=== PATIENT | male | born 1945 | race Caucasian/White ===

== ENCOUNTER 2020-05-06 06:52 | Day surgery (SDC) | payer OTHER ==
[~2020-05-06] VITALS: Ht 188 cm; Wt 101.0 kg
[~2020-05-06 06:52] MED LIST: ASPI81CH PO; ATOR20 PO; CARV6.25; CARV6.25 PO; CHLO25B PO; ENTRESTO 24 MG1 EAC2 PO; FINA5 PO; METF500 PO; SPIR25 PO
[2020-05-06] MEDS ORDERED: Nitroglycerin1 EAC3 TOP (07:28)
--- NOTE | 2020-05-06 11:44 | NUR ---
DISCHARGE GONE OVER WITH PT, PT VERBALIZES UNDERSTANDING. CLOTH DOT PLACED OVER RIGHT RADIAL SITE. SALINE LOCK OUT WITH CATHETER INTACT. PT TO PRIVATE VEHICLE PER W/C WITH 1 STAFF.
== END 2020-05-06 11:45 | disposition home or self-care (01) ==
LOC: MHTC 06:52
DX: I25.10 Atherosclerotic heart disease of native coronary artery without angina pectoris (principal); R94.39 Abnormal result of other cardiovascular function study; R06.02 Shortness of breath; I42.0 Dilated cardiomyopathy; Z88.2 Allergy status to sulfonamides; Z88.1 Allergy status to other antibiotic agents
CPT/HCPCS: 76937; 85347; 93458; 99152; 99153; C1769; C1894; J1644; J2250; J3010; J7030; J7050; Q9967

== ENCOUNTER 2020-07-02 08:40 | Day surgery (SDC) | payer OTHER ==
[~2020-07-02] VITALS: Ht 188 cm; Wt 99.2 kg
[~2020-07-02 08:40] MED LIST changes: -ASPI81CH PO; +Aspirin EC81 MG PO; +Nitroglycerin1 EAC3 TOP
--- NOTE | 2020-07-02 13:50 | NUR ---
PT ARRIVED IN THE UNIT FROM [facility] FOR EXTENDED RECOVERY. PT IS ALERT AND ORIENTED AT BASELINE. VITALS HRR SINUS/SINUS DAIN 55-65'S, BP SYSTOLIC 150'S, SATS ABOVE 95% ON RA, AFEBRILE. PT HAS RIGHT RADIAL ACCESS SITE TR BAND WITH 12CC OF AIR. PT HAD 4 STENTS PLACED DURING THE PROCEDURE PT TOLERATED WELL PER REPORT. PT DENIES ANY PAIN AT THIS TIME, PT USES URINAL FOR URINATION, STANDS AT BEDSIDE TO USE URINAL. PT CURRENTLY IN BED EATING LUNCH. CALL LIGHTS IN REACH WILL MONITOR
--- NOTE | 2020-07-03 06:55 | NUR ---
SHIFT SUMMARY PT ALERT AND ORIENTED. PT SLEPT T/O SHIFT. HR STABLE. BP STABLE. PT REPORTS NO CP OR PRESSURE. OXYGEN SATURATION MAINTAINED ABOVE 92% ON RA. WILL CONTINUE TO MONITOR UNTIL REPORT GIVEN TO MAHAMED HANSON.
[2020-07-03] MEDS ORDERED: TICA90TA PO (10:03)
--- NOTE | 2020-07-03 11:32 | NUR ---
PT DISCHARGED TO HOME TODAY WITH DISCHARGED ORDERS, RIGHT RADIAL ACCESS SITE FULLY RECOVERED CLEAR DRESSING AND SITE CDI, VITALS HAS BEEN STABLE. PT TO FOLLOW UP WITH DR FELIZ IN 4 WEEKS APPT MADE AND SET UP, PT TO START ON [place] MEDICATION PT WAS SENT CARD FOR FREE 30DAYS SUPPLY AND FREE SAMPLES. DISCHARGED MEDICAITON AND INSTRUCTION DISCLOSED WITH THE PT. PT RECEIVED A SHOWER PRIOR TO DISCHARGED. ALL BELONGINGS SENT WITH PT, [facility]SP[facility]. PT ACCOMPANIED IN THE LOBBY VIA WHEELCHAIR.
== END 2020-07-03 10:43 | disposition home or self-care (01) ==
LOC: MHTC 08:40 → PCU 12:38 → ENPENDDIS 07-03 09:31 → MHTC 07-03 10:43
DX: I25.119 Atherosclerotic heart disease of native coronary artery with unspecified angina pectoris (principal); I11.0 Hypertensive heart disease with heart failure; I50.20 Unspecified systolic (congestive) heart failure; E11.9 Type 2 diabetes mellitus without complications; E78.5 Hyperlipidemia, unspecified; I25.5 Ischemic cardiomyopathy; I08.3 Combined rheumatic disorders of mitral, aortic and tricuspid valves; Z88.2 Allergy status to sulfonamides; Z88.1 Allergy status to other antibiotic agents; Z79.02 Long term (current) use of antithrombotics/antiplatelets; Z79.82 Long term (current) use of aspirin; Z79.899 Other long term (current) drug therapy; Z95.5 Presence of coronary angioplasty implant and graft; Z79.84 Long term (current) use of oral hypoglycemic drugs
CPT/HCPCS: 76937; 85347; 92978; 93005; 93010; 93454; 99152; 99153; A9270; A9270-GY; C1725; C1753; C1769; C1874; C1887; C1894; C9600; C9601; J1644; J1650; J2250; J3010; J7030; J7050; Q9967

== ENCOUNTER 2020-08-02 08:47 | Day surgery (SDC) | payer OTHER ==
[~2020-08-02] VITALS: Ht 188 cm; Wt 97.0 kg
[~2020-08-02 08:47] MED LIST changes: +TICA90TA PO
--- NOTE | 2020-08-02 13:10 | NUR ---
2 cc air removed from TR band no bleeding at site. Remainder of air removed over 15 minutes. No bleeding at site.
--- NOTE | 2020-08-02 14:10 | NUR ---
DR. FELIZ HERE TO DISCUSS PROCEDURE. HEMATOMA ON RIGHT ARM ASSESSED. WHEN PRESSURE APPLIED THE SITE SOFTENS. COBAN APPLIED.
--- NOTE | 2020-08-02 14:16 | NUR ---
TR BAND REMOVED. NO BLEEDING AT SITE. CLOTH DOT AND IMMOBILIZER APPLIED. DISCHARGE INSTRUCTIONS GIVEN WITH VERBAL AND WRITTEN UNDERSTANDING. DRESSED FOR DISCHARGE.
--- NOTE | 2020-08-02 14:20 | NUR ---
IV REMOVED INTACT. 2X2, COBAN AND MANUAL PRESSURE APPLIED.
--- NOTE | 2020-08-02 15:01 | NUR ---
DISCHARGED HOME VIA WHEELCHAIR. FRIEND DRIVING.
== END 2020-08-02 15:00 | disposition home or self-care (01) ==
LOC: MHTC 08:47
PROC: B211YZZ Fluoroscopy of Multiple Coronary Arteries using Other Contrast (ICD-10-PCS; principal; 2020-08-02)
PROC: 4A023N7 Measurement of Cardiac Sampling and Pressure, Left Heart, Percutaneous Approach (ICD-10-PCS; principal; 2020-08-02)
DX: I25.118 Atherosclerotic heart disease of native coronary artery with other forms of angina pectoris (principal); I11.0 Hypertensive heart disease with heart failure; E11.9 Type 2 diabetes mellitus without complications; Z88.2 Allergy status to sulfonamides; Z88.1 Allergy status to other antibiotic agents; E78.00 Pure hypercholesterolemia, unspecified; E78.5 Hyperlipidemia, unspecified; Z79.82 Long term (current) use of aspirin; E53.8 Deficiency of other specified B group vitamins; I42.9 Cardiomyopathy, unspecified; I50.20 Unspecified systolic (congestive) heart failure; Z79.84 Long term (current) use of oral hypoglycemic drugs; Z79.899 Other long term (current) drug therapy; I44.0 Atrioventricular block, first degree; I08.1 Rheumatic disorders of both mitral and tricuspid valves
CPT/HCPCS: 76937; 85347; 93454; 99152; 99153; C1725; C1769; C1874; C1887; C1894; C9600; J1644; J2250; J3010; J7030; J7050; Q9967

== ENCOUNTER 2020-10-11 08:34 | Emergency (ER) | payer OTHER ==
[~2020-10-11] VITALS: Ht 188 cm; Wt 97.5 kg
[2020-10-11 09:36] LABS: Source, Urine Clean Catch
[2020-10-11 09:54] LABS: Blood, Urine 5+ (Neg); Glucose Qualitative, Urine Neg (Neg); Ketones, Urine 1+ (Neg); Leukocyte Esterase, Urine 3+ (Neg); Nitrite, Urine Pos (Neg); Protein, Urine 2+ (Neg); Urobilinogen, Urine 1+ (Normal)
[2020-10-11 10:20] LABS: Bilirubin, Urine 1+ (Neg)
[2020-10-11 10:21] LABS: Appearance, Urine Turbid (Clear); Color, Urine Amber (P-Yellow)
[2020-10-11 10:25] LABS: Red Blood Cells, Urine TNTC /hpf (0-2); Squamous Epithelial Cells Few /hpf (Few)
[2020-10-11 10:30] LABS: White Blood Cells, Urine 25-50 /hpf (0-5)
[2020-10-11 10:31] LABS: Bacteria Few /hpf
[2020-10-11 10:35] LABS: Calcium, Ionized (POC) 1.18 mmol/L (1.10-1.46); Chloride (POC) 102 mmol/L (98-108); Creatinine (POC) 1.2 mg/dL (0.8-1.3); Glucose (ISTAT POC) 138 mg/dL (70-99); Hemoglobin (POC) 14.3 g/dL (13.5-17.5); Potassium (POC) 3.7 mmol/L (3.5-5.5); Sodium (POC) 140 mmol/L (135-148); Total CO2 (POC) 28 mmol/L (21-32)
[2020-10-11] MEDS ORDERED: Macrobid 100 M100 MG PO (13:14)
== END 2020-10-11 13:33 | disposition home or self-care (01) ==
LOC: ER 08:34
PROVIDERS: Emergency Medicine
DX: R31.9 Hematuria, unspecified (principal); Z79.84 Long term (current) use of oral hypoglycemic drugs; Z79.899 Other long term (current) drug therapy
CPT/HCPCS: 71045; 74177; 80047; 81001; 84484; 85014; 87077; 87086; 87186; 93005; 93010; 99284-25; J7120; Q9967

== ENCOUNTER 2021-06-27 13:11 | Emergency (ER) | payer OTHER ==
[~2021-06-27] VITALS: Ht 188 cm; Wt 97.5 kg
[~2021-06-27 13:11] MED LIST changes: +Macrobid 100 M100 MG PO
[2021-06-27 14:38] LABS: Influenza A, PCR NEGATIVE (NEGATIVE); Influenza B, PCR NEGATIVE (NEGATIVE); Resp Syncytial Virus, PCR NEGATIVE (NEGATIVE)
[2021-06-27 14:48] LABS: SARS-Cov-2 (COVID-19) PCR, MMC POSITIVE (NEGATIVE)
== END 2021-06-27 14:57 | disposition home or self-care (01) ==
LOC: ER 13:11
PROVIDERS: Physician Assistant
DX: U07.1 COVID-19 (principal); E11.9 Type 2 diabetes mellitus without complications; Z88.2 Allergy status to sulfonamides; Z88.1 Allergy status to other antibiotic agents; Z79.899 Other long term (current) drug therapy; Z79.82 Long term (current) use of aspirin
CPT/HCPCS: 0241U; 99284

== ENCOUNTER 2021-07-02 13:32 | Emergency (ER) | payer OTHER ==
[~2021-07-02] VITALS: Ht 188 cm; Wt 97.5 kg
[2021-07-02 13:51] LABS: BASOPHILS PERCENT AUTO 0 % (0-2); EOSINOPHILS ABSOLUTE AUTO 0.01 K/mm3 (0.00-0.68); EOSINOPHILS PERCENT AUTO 0 % (0-6); Hematocrit 37.8 % (37.0-53.0); IMMATURE GRAN ABSOLUTE AUTO 0.02 K/mm3 (0.00-0.10); IMMATURE GRAN PERCENT AUTO 0 % (0-1); LYMPHOCYTES ABSOLUTE AUTO 0.34 K/mm3 (0.84-5.20); LYMPHOCYTES PERCENT AUTO 6 % (21-46); MONOCYTES ABSOLUTE AUTO 0.35 K/mm3 (0.16-1.47); MONOCYTES PERCENT AUTO 6 % (4-13); Mean Corpuscular HGB 24.1 pg (26.0-34.0); Mean Corpuscular HGB Conc 31.7 g/dL (31.5-36.5); Mean Corpuscular Volume 76 fL (80-100); Mean Platelet Volume 9.8 fL (9.1-12.4); NEUTROPHILS ABSOLUTE AUTO 5.25 K/mm3 (1.96-9.15); NEUTROPHILS PERCENT AUTO 88 % (41-73); Platelet Count 268 K/mm3 (150-400); RDW Coefficient Variation 14.5 % (11.7-14.2); RDW Standard Deviation 39.1 fL (35.1-46.3); Red Blood Cell Count 4.98 M/mm3 (4.30-5.90); White Blood Cell Count 5.97 K/mm3 (4.00-11.30)
[2021-07-02 14:26] LABS: Albumin, Blood 2.6 g/dL (3.4-5.0); Albumin/Globulin Ratio 0.6 (0.8-1.8); Bilirubin, Total 0.7 mg/dL (0.1-1.0); Bun/Creatinine Ratio 22.1 (12.0-20.0); Calcium, Blood 8.8 mg/dL (8.5-10.1); Creatinine, Blood 1.45 mg/dL (0.60-1.20); Globulin, Blood 4.6 g/dL (2.2-4.0); Potassium, Blood 3.3 mmol/L (3.5-5.5); Total Protein, Blood 7.2 g/dL (6.4-8.2)
== END 2021-07-03 05:35 | disposition home or self-care (01) ==
LOC: ER 13:32
PROVIDERS: Emergency Medicine
DX: U07.1 COVID-19 (principal); J12.89 Other viral pneumonia; I11.0 Hypertensive heart disease with heart failure; I50.22 Chronic systolic (congestive) heart failure; E11.9 Type 2 diabetes mellitus without complications; N40.0 Benign prostatic hyperplasia without lower urinary tract symptoms; I25.10 Atherosclerotic heart disease of native coronary artery without angina pectoris; Z88.2 Allergy status to sulfonamides; Z88.1 Allergy status to other antibiotic agents; Z79.899 Other long term (current) drug therapy; Z79.82 Long term (current) use of aspirin; Z79.84 Long term (current) use of oral hypoglycemic drugs; Z79.4 Long term (current) use of insulin
CPT/HCPCS: 71045; 80053; 85025; 99285-25; A9270; J7030

== ENCOUNTER 2021-07-07 10:02 | Inpatient (IN) | payer OTHER ==
[~2021-07-07] VITALS: Ht 188 cm; Wt 97.5 kg
[2021-07-07 10:45] LABS: BASOPHILS ABSOLUTE AUTO 0.01 K/mm3 (0.00-0.23); BASOPHILS PERCENT AUTO 0 % (0-2); EOSINOPHILS ABSOLUTE AUTO 0.02 K/mm3 (0.00-0.68); EOSINOPHILS PERCENT AUTO 0 % (0-6); Hematocrit 36.5 % (37.0-53.0); Hemoglobin 11.5 g/dL (13.5-17.5); IMMATURE GRAN ABSOLUTE AUTO 0.04 K/mm3 (0.00-0.10); IMMATURE GRAN PERCENT AUTO 1 % (0-1); LYMPHOCYTES ABSOLUTE AUTO 0.51 K/mm3 (0.84-5.20); LYMPHOCYTES PERCENT AUTO 6 % (21-46); MONOCYTES ABSOLUTE AUTO 0.75 K/mm3 (0.16-1.47); MONOCYTES PERCENT AUTO 9 % (4-13); Mean Corpuscular HGB 23.7 pg (26.0-34.0); Mean Corpuscular HGB Conc 31.5 g/dL (31.5-36.5); Mean Corpuscular Volume 75 fL (80-100); Mean Platelet Volume 9.6 fL (9.1-12.4); NEUTROPHILS ABSOLUTE AUTO 7.51 K/mm3 (1.96-9.15); NEUTROPHILS PERCENT AUTO 85 % (41-73); Platelet Count 345 K/mm3 (150-400); RDW Coefficient Variation 14.6 % (11.7-14.2); Red Blood Cell Count 4.85 M/mm3 (4.30-5.90); White Blood Cell Count 8.84 K/mm3 (4.00-11.30)
[2021-07-07 11:13] LABS: Albumin, Blood 2.1 g/dL (3.4-5.0); Albumin/Globulin Ratio 0.5 (0.8-1.8); Bilirubin, Total 0.9 mg/dL (0.1-1.0); Bun/Creatinine Ratio 24.4 (12.0-20.0); Calcium, Blood 8.8 mg/dL (8.5-10.1); Creatinine, Blood 1.19 mg/dL (0.60-1.20); Globulin, Blood 4.6 g/dL (2.2-4.0); Total Protein, Blood 6.7 g/dL (6.4-8.2)
[2021-07-07] MEDS ORDERED: DEXA6 PO (14:19)
== END 2021-07-07 17:45 | DRG 177 ==
LOC: ER 10:02 → ERHOLD 12:23
PROVIDERS: Emergency Medicine; ADMIT Internal Medicine
PROC: 8E0ZXY6 Isolation (ICD-10-PCS; principal; 2021-07-07)
PROC: XW033E5 Introduction of Remdesivir Anti-infective into Peripheral Vein, Percutaneous Approach, New Technology Group 5 (ICD-10-PCS; 2021-07-07)
PROC: 3E0DX3Z Introduction of Anti-inflammatory into Mouth and Pharynx, External Approach (ICD-10-PCS; 2021-07-07)
DX: U07.1 COVID-19 (principal); J12.82 Pneumonia due to coronavirus disease 2019; J96.01 Acute respiratory failure with hypoxia; I50.22 Chronic systolic (congestive) heart failure; E87.6 Hypokalemia; I25.10 Atherosclerotic heart disease of native coronary artery without angina pectoris; E11.9 Type 2 diabetes mellitus without complications; I11.0 Hypertensive heart disease with heart failure; D64.9 Anemia, unspecified; E86.0 Dehydration; N40.0 Benign prostatic hyperplasia without lower urinary tract symptoms; Z95.1 Presence of aortocoronary bypass graft; Z79.4 Long term (current) use of insulin; Z98.890 Other specified postprocedural states; Z95.5 Presence of coronary angioplasty implant and graft; Z88.2 Allergy status to sulfonamides; Z88.1 Allergy status to other antibiotic agents
CPT/HCPCS: 36415; 71045; 80053; 82728; 82947; 83615; 85025; 93005; 93010; 96374; 96375; 99285-25; A9270; G0378; J2405

== ENCOUNTER → 2021-07-24 | Outpatient (CLI) | payer MEDICARE ==
[~2021-07-24] MED LIST changes: +DEXA6 PO
[2021-07-24 13:37] LABS: Anion Gap 9 mmol/L (6-16); Blood Urea Nitrogen 30 mg/dL (8-24); Bun/Creatinine Ratio 25.6 (12.0-20.0); CHOL/HDL RATIO 3.1; CO2, Blood 27 mmol/L (21-32); Calcium, Blood 9.6 mg/dL (8.5-10.1); Chloride, Blood 103 mmol/L (98-108); Cholesterol 135 mg/dL (50-200); Creatinine, Blood 1.17 mg/dL (0.60-1.20); Glomerular Filtration Rate >60 (60-); Glucose, Blood 98 mg/dL (70-99); HDL Cholesterol 43 mg/dL (>39); LDL/HDL RATIO 1.5; Low Density Lipoprotein Chol 64 mg/dL (0-110); Potassium, Blood 4.3 mmol/L (3.5-5.5); Sodium, Blood 139 mmol/L (136-145); Triglycerides 140 mg/dL (30-160); Very Low Density Lipoprot Chol 28 mg/dL (6-32)
== END | disposition home or self-care (01) ==
LOC: LAB RH 11:51 → EDSTATUS 12:50
PROVIDERS: Internal Medicine
DX: E11.22 Type 2 diabetes mellitus with diabetic chronic kidney disease (principal); N18.9 Chronic kidney disease, unspecified
CPT/HCPCS: 80048; 80061; 83036

== ENCOUNTER 2022-07-21 07:16 | Day surgery (SDC) | payer OTHER ==
[~2022-07-21] VITALS: Ht 188 cm; Wt 98.1 kg
== END 2022-07-21 09:59 | disposition home or self-care (01) ==
LOC: ORSCSDS 07:16
PROVIDERS: Surgery
PROC: 0DJD8ZZ Inspection of Lower Intestinal Tract, Via Natural or Artificial Opening Endoscopic (ICD-10-PCS; principal; 2022-07-21 09:15)
DX: Z12.11 Encounter for screening for malignant neoplasm of colon (principal); Z86.010 Personal history of colon polyps; Z80.0 Family history of malignant neoplasm of digestive organs; E11.65 Type 2 diabetes mellitus with hyperglycemia; I25.10 Atherosclerotic heart disease of native coronary artery without angina pectoris; I11.0 Hypertensive heart disease with heart failure; N40.0 Benign prostatic hyperplasia without lower urinary tract symptoms; Z79.02 Long term (current) use of antithrombotics/antiplatelets; Z79.82 Long term (current) use of aspirin; Z79.84 Long term (current) use of oral hypoglycemic drugs; Z79.899 Other long term (current) drug therapy
CPT/HCPCS: 82947; J2704; J7120